=== PATIENT | male | born 1965 | race Caucasian/White ===

== ENCOUNTER 2020-04-13 10:01 | Outpatient (REF) | payer OTHER, SELFPAY ==
--- NOTE | 2020-04-13 10:04 | CT_ITS ---
EXAMINATION: CT CHEST SCREENING CLINICAL INFORMATION: Routine lung screening. Current smoker. COMPARISON: CT chest 04/03/2019 TECHNIQUE: Multidetector volumetric CT imaging of the chest is performed without contrast using low dose technique. Additional 2D coronal and sagittal reformatted images and axial 3D maximum intensity projection (MIP) images are generated on the CT workstation. This CT examination was performed using dose optimization techniques as appropriate, variously including the following: *Automated exposure control *Adjustment of mA and/or kV according to patient size (this includes techniques or standardized protocols for targeted exams where dose is matched to indication/reason for exam; i.e. extremities or head) *Use of iterative reconstruction technique DLP: 55 mGy-cm FINDINGS: LUNGS: The lungs are well expanded and clear of acute pneumonic consolidation. There are new small multiple pulmonary nodules seen in the left upper lobe measuring 3-4 mm on axial images 26 through 46/9, 60/9, and 64/9. A 2 mm and a 4 mm nodule in the right upper lobe axial image 67/9, 5 mm nodule right upper lobe axial image 53/9 and image 70/9, and 3 mm nodule right lower lobe axial image 138/9. Minimal atelectatic changes are seen in the right middle lobe and left lower lobe. MEDIASTINUM: The thyroid lobes are symmetrically normal. The central trachea and the bronchi are widely patent. Heart size and the great vessels are normal caliber. There are coronary artery calcifications present. No pericardial effusion seen. PLEURA: There is no pleural effusion. No pleural mass or thickening. AXILLA: No lymphadenopathy. UPPER ABDOMEN: The visualized liver, pancreas and bilateral adrenal glands are unremarkable. OSSEOUS STRUCTURES: No lytic or sclerotic process seen. CT/CT lung screening IMPRESSION: New multiple small pulmonary nodules are seen in the range of 3-5 mm in the left upper lobe, right upper lobe and right lower lobe. ASSESSMENT: Lung-RADS category 2: Benign. RECOMMENDATION: Low dose annual CT chest.
== END 2020-04-13 10:02 | disposition home or self-care (01) ==
LOC: HO.CT 10:01
PROVIDERS: Visit Provider Physician Assistant Medical
DX: Z12.2 Encounter for screening for malignant neoplasm of respiratory organs (principal); F17.210 Nicotine dependence, cigarettes, uncomplicated
CPT/HCPCS: 71250

== ENCOUNTER 2024-01-16 17:36 | Emergency (ER) | payer BC, SELFPAY ==
[2024-01-16 18:34] VITALS: BP 142/63; PULSE 48; RESP 18; TEMP 36.7; O2SAT 98; BMI 20.4
--- NOTE | 2024-01-16 19:14 | ED.DENTAL ---
HPI - Dental/Oral General Chief complaint: Dental/Oral Stated complaint: R side facial swelling Time Seen by Provider: 01/16/24 19:10 Source: patient Mode of arrival: ambulatory Limitations: no limitations History of Present Illness ED Provider: jean paul REAGAN Narrative: Patient with poor oral hygiene with Multiple caried teeth in the right lower jaw comes here for 3 days of swelling of right mandibular no fever no chills, noticed increased pain in the broken teeth also Related Data Previous Rx's ?Medication ?Instructions ?Recorded clindamycin HCl 300 mg capsule 300 mg PO Q8H #30 caps 01/16/24 ibuprofen 600 mg tablet 600 mg PO Q6H PRN fever or pain 01/16/24 #30 tabs oxycodone 5 mg tablet 5 mg PO Q6H PRN pain #20 tabs 01/16/24 Allergies Allergy/AdvReac Type Severity Reaction Status Date / Time penicillin V Allergy Unknown pt cannot Verified 01/16/24 18:35 remember Penicillins [PCN] Allergy Unknown UNKNOWN Verified 01/16/24 18:35 Review of Systems Review of Systems: Yes all other systems are reviewed and are negative [facility] Family History Family History Mother Father Sister Breast cancer Social History Social History Alcohol intake: current Alcohol intake frequency: a few times a week Alcohol type: beer Cigarette Packs Per Day: 1 Advance Directives: No Advance Directives Information Provided: No Physical Exam Vital Signs: Vital Signs: Last Vital Signs Temp 98.1 F 01/16/24 20:22 Pulse 48 L 01/16/24 20:22 Resp 18 01/16/24 20:22 BP 142/63 H 01/16/24 20:22 Pulse Ox 98 01/16/24 20:22 O2 Del Method Room Air 01/16/24 20:22 BMI result Body Mass Index 20.4 HEENT: Teeth image: 1. Poor oral hygiene teeth from 26 to31 with deep cavities broken teeth no gum swelling no fluctuant swelling palpable does not swelling of right mandible 2. Medications Administered Discontinued Medications Generic Name Dose Route Start Last Admin Trade Name Freq PRN Reason Stop Dose Admin Clindamycin HCl 300 mg 01/16/24 20:05 01/16/24 20:08 Clindamycin Hcl 300 Mg Capsule PO 01/16/24 20:06 300 mg ONCE ONE Administration Oxycodone HCl 5 mg 01/16/24 19:30 01/16/24 20:08 Oxycodone Hcl Immed Release 5 Mg Tablet PO 01/16/24 19:31 5 mg ONCE ONE Administration Medical Decision Making Medical Decision Making [facility] Narrative: Patient with swelling of the right lower mandible area likely developing abscess will prescribe clindamycin as patient is allergic to penicillin and follow with dentist at this time this no fluctuant swelling noticed Differential Diagnosis Differential Diagnoses: The differential diagnosis associated with the presentation includes Discharge Plan Discharge Clinical Impression: Dental caries Patient Disposition: Home, Self-Care Instructions: Toothache (ED) Additional Instructions: Take antibiotics as prescribed Pain medication as prescribed Follow with dentist for further evaluation Report if worsening of the swelling and pain Prescriptions: New clindamycin HCl 300 mg capsule 300 mg PO Q8H Qty: 30 0RF oxycodone 5 mg tablet 5 mg PO Q6H PRN (Reason: pain) Qty: 20 0RF Rx Instructions: Partial Fill upon patient request. ibuprofen 600 mg tablet 600 mg PO Q6H PRN (Reason: fever or pain) Qty: 30 0RF Stand Alone Forms: Work/School Release Interventions: ED Discharge Assessment Last Done: 01/16/24 20:22 Discharge Date/Time: 01/16/24 20:22 Print Language: [place]
--- NOTE | 2024-01-16 19:30 | ECG_ITS ---
Test Reason : irregular hearbeat Blood Pressure : / mmHG Vent. Rate : 069 BPM Atrial Rate : 069 BPM P-R Int : 110 ms QRS Dur : 102 ms QT Int : 396 ms P-R-T Axes : 073 036 038 degrees QTc Int : 424 ms Sinus rhythm with short MT with Premature supraventricular complexes and with occasional Premature ventricular complexes Incomplete right bundle branch block Borderline ECG No previous ECGs available Referred By: Todd Galicia Electronically Signed By:LEON ROSARIO
[2024-01-16] MEDS: Clindamycin HCL 300 MG CAPSULE PO (20:08)
[2024-01-16] MEDS: oxyCODONE HCl Immed Release 5 MG TABLET PO (20:08)
[2024-01-16 20:22] VITALS: BP 142/63; PULSE 48; RESP 18; TEMP 36.7; O2SAT 98
== END 2024-01-16 20:22 | disposition home or self-care (01) ==
PROVIDERS: Emergency Provider Internal Medicine
DX: K02.9 Dental caries, unspecified (principal); K08.89 Other specified disorders of teeth and supporting structures; I49.9 Cardiac arrhythmia, unspecified
CPT/HCPCS: 93005; 99283